=== PATIENT | male | born 1955 | race Caucasian/White ===

== ENCOUNTER 2023-01-29 08:52 | Outpatient (REF) | payer OTHER, SELFPAY ==
--- NOTE | ~2023-01-29 | MR_ITS ---
EXAMINATION: MR BRAIN WITHOUT CONTRAST CLINICAL INFORMATION: Tremor COMPARISON: Sinus CT 12/11/2022 TECHNIQUE: MRI of the brain was obtained using routine sequences without contrast. FINDINGS: No acute infarct. No acute intracranial hemorrhage or extra-axial fluid collection. Mild age-appropriate generalized parenchymal volume loss. Patchy T2 hyperintense foci in the subcortical and periventricular white matter and dimas are nonspecific but presumably reflects mild chronic microangiopathy. Prominent perivascular space within the right subinsular region. No mass lesion, mass effect, or herniation pattern. Normal intracranial arterial and dural venous sinus flow voids. Normal appearance of the midline structures. The orbits are grossly unremarkable. 3 scattered paranasal sinus mucosal thickening. Proteinaceous retention cyst in the dependent right maxillary sinus. No mastoid effusion. Normal marrow signal. Hypertrophic degenerative changes across the anterior atlantodental interval. MR/MR head/brain wo con IMPRESSION: No acute intracranial abnormality. Mild age-appropriate generalized parenchymal volume loss and presumed mild chronic microangiopathy.
== END 2023-01-29 08:53 | disposition home or self-care (01) ==
LOC: HO.MRI 08:52
PROVIDERS: PCP Student in an Organized Health Care Education/Training Program; Visit Provider Psychiatry & Neurology Neurology
DX: R25.1 Tremor, unspecified (principal)
CPT/HCPCS: 70551

== ENCOUNTER 2025-03-01 11:04 | Outpatient (AMB) | payer OTHER, SELFPAY ==
--- OUTSIDE RECORDS SUMMARY | 2025-02-25 09:00 | XMS_ITS | Encounter Summary ---
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 Name Role Phone Td Cohen MD Primary Care Provider [phone] Reason for Referral * Imaging (Routine) - Pending Review Specialty Diagnoses / Procedures Referred By Contac t Referred To Contact Radiology Diagnoses Routine general medical examination at a health care facility Procedures US Abdomen Aortic Aneurysm Screening Td Cohen MD [address] [place] [address] Phone: tel: fax: [address] Phone: tel: Referral ID Status Reason Start Date Expiration Date V isits Requested Visits Authorized [id number] Pending Review 02/19/2025 02/19/2026 1 1 Reason for Visit * Imaging (Routine) - Pending Review Specialty Diagnoses / Procedures Referred By Contac t Referred To Contact Radiology Diagnoses Routine general medical examination at a health care facility Procedures US Abdomen Aortic Aneurysm Screening Td Cohen MD [address] [place] [address] Phone: tel: fax: [address] Phone: tel: Referral ID Status Reason Start Date Expiration Date V isits Requested Visits Authorized [id number] Pending Review 02/19/2025 02/19/2026 1 1 Encounter Details Date Type Department Care Team (Latest Contact Info) Description 02/25/2025 9:00 AM EDT - 02/25/2025 11:59 PM EDT Hospital Encounter Radiology Department - [address] [phone] Routine general medical examination at a health care facility Discharge Disposition: Home or Self Care Social History Tobacco Use Types Packs/Day Years Used Date Smoking Tobacco: Former Cigarettes 1 - 08/05/1994 Smokeless Tobacco: Never Alcohol Use Standard Drinks/Week Comments No 0 (1 standard drink = 0.6 oz pur e alcohol) Housing Instability Answer Date Recorde d Are you worried that in the next 2 months you may not have stable housing? No 02/12/2025 Food Access & Nutrition Answer Date Rec orded Do you have access to a vari ety of food including fruits and vegetables? Yes 02/12/2025 Access to Healthcare Answer Date Record ed Within the last 3 months, ho w many times did you visit the emergency department for your medical care? 0 02/12/2025 Health Literacy Answer Date Recorded How often do you need to hav e someone help you when you read instructions, pamphlets, or other written material from your doctor or pharmacy? Never 02/12/2025 Caregiver: How often do you need to have someone help you when you read instructions, pamphlets, or other written material from your doctor or pharmacy? Not on file 02/12/2025 Financial Risk Answer Date Recorded How hard is it for you to pa y for the very basics like food, housing, medical care, and air conditioning / heating? Not very hard 02/12/2025 Transportation Answer Date Recorded Has the lack of transportati on kept you from meetings, work, or from getting things needed for daily living? No Has the lack of transportati on kept you from medical appointments or from getting medications? No 02/12/2025 Social Isolation Answer Date Recorded How often do you feel lonely or isolated from those around you? Sometimes 02/12/2025 Food Risk Answer Date Recorded Within the past 12 months we worried whether our food would run out before we got money to buy more. Never true 02/12/2025 Within the past 12 months th e food we bought just didn't last and we didn't have money to get more. Never true 02/12/2025 Dependent Care Answer Date Recorded Do you need help finding or paying for care for your loved ones. For example, early childhood aide classroom or elderly care for an older adult? No 02/12/2025 Education Answer Date Recorded Do you think completing more education or training, like finishing a GED, going to college, or learning a trade, would be helpful for you? No 02/12/2025 Employment and Income Answer Date Recor ded During the last four weeks, have you been actively looking for work? No 02/12/2025 Living Situation Answer Date Recorded What is your living situation? 0 02/12/2025 Sex and Gender Information Value Date Recorded Sex Assigned at Male 06/16/2024 1:04 PM EST Legal Sex Male 12:16 PM EST Gender Identity Male 06/16/2024 1:04 PM EST Sexual Orientation Straight 06/16/2024 1: 04 PM EST documented as of this encounter Medications at Time of Discharge aspirin 81 mg chewable tablet Chew 1 tablet (81 mg total). atorvastatin (LIPITOR) 10 mg tabletIndications: Type 2 diabetes mellitus without complications (CMS/[facility] V24, CMS/[facility] V28) Take 1 tablet by mouth once daily 90 tablet 1 11/03/2024 blood-glucose meter misc 1 each by Not Applicable route. 05/27/2012 buPROPion XL (WELLBUTRIN XL) 300 mg 24 hr tabletIndications: Major depressive disorder, recurrent, moderate (CMS/HCC V24, CMS/HCC V28) Take 1 tablet (300 mg total) by mouth 1 (one) time each day in the morning. 90 tablet 01/20/2025 cholecalciferol (VITAMIN D-3) 25 mcg (1,000 unit) tablet Take 1 tablet (1,000 Units total) by mouth 1 (one) time each day. citalopram (CeleXA) 20 mg tabletIndications: Major depressive disorder, recurrent, moderate (CMS/HCC V24, CMS/[facility] V28) Take 1 tablet (20 mg total) by mouth 1 (one) time each day. 90 each 02/02/2025 05/03/20 25 fluticasone propionate (FLONASE) 50 mcg/actuation nasal spray Administer 2 sprays into affected nostril(s). 11/19/2022 glipiZIDE (GLUCOTROL) 5 mg tablet Take 1 tablet (5 mg total) by mouth 2 (two) times a day before meals. 180 each 1 12/01/2024 05/30/20 25 glucose blood test strip USE ONE STRIP TO CHECK GLUCOSE TWICE DAILY 05/20/2024 lisinopriL (PRINIVIL,ZESTRIL) 20 mg tablet Take 1 tablet by mouth once daily 90 tablet 12/02/2024 medical marijuana [employer] med metFORMIN XR (GLUCOPHAGE-XR) 500 mg 24 hr tablet Take 4 tablets (2,000 mg total) by mouth 1 (one) time each day with breakfast. Do not crush, chew, or split. 360 tablet 1 01/20/2025 mineral oil-hydrophilic petrolatum (AQUAPHOR) ointment Apply topically if needed for dry skin. 420 g 11/18/2024 11/19/19 26 miscellaneous medical supply misc CPAP Nightly morphine (MS CONTIN) 30 mg 12 hr tablet Take 1 tablet (30 mg total) by mouth 1 (one) time each day if needed for severe pain. Do not crush, chew, or split. Take along with Morphine 60mg for a total of 90 mg daily Max Daily Amount: 30 mg 28 tablet 02/03/2025 morphine (MS CONTIN) 60 mg 12 hr tablet Take 1 tablet (60 mg total) by mouth 1 (one) time each day if needed for severe pain. Max Daily Amount: 60 mg 28 tablet 02/10/2025 primidone (MYSOLINE) 50 mg tablet Take 1 tablet (50 mg total) by mouth 1 (one) time each day. 08/11/2024 syringe with needle (BD Luer-Lisbet Syringe) 3 mL 21 gauge x 1 1/2 syringeIndications :Low testosterone To inject Testosterone IM every 2 weeks 6 each 3 11/20/2024 tamsulosin (FLOMAX) 0.4 mg 24 hr capsule Take 1 capsule (0.4 mg total) by mouth 1 (one) time each day. Capsules should be taken 30 minutes following the same meal each day. 90 capsule 1 02/11/2025 testosterone cypionate (DEPO-TESTOTERONE) 200 mg/mL injectionIndicatio ns:Low testosterone INJECT 0.5 ML INTO THE SHOULDER, THIGH, OR BUTTOCKS EVERY 14 DAYS. MAX DAILY AMOUNT: 100 MG 2 mL 2 02/26/2025 testosterone cypionate (DEPO-TESTOTERONE) 200 mg/mL injectionIndicatio ns:Low testosterone Inject 0.5 mL (100 mg total) into the shoulder, thigh, or buttocks every 14 (fourteen) days. Max Daily Amount: 100 mg 1 mL 2 11/20/2024 02/27/20 documented as of this encounter Discharge Disposition Disposition Code Departure Means Destination Home or Self Care documented in this encounter Plan of Treatment Upcoming Encounters Date Type Department Care Team (Late st Contact Info) Description 03/15/2025 11:15 AM EDT Office Visit [address] [phone] Irene Telles MD [address] [place] [id number] 06/16/2025 1:45 PM EST Office Visit Adult [address] [phone] Td Cohen MD [address] [place] [address] 02/23/2026 2:00 PM EDT Office Visit Adult Medicine [address] [phone] Td Cohen MD [address] [place], [place] documented as of this encounter Procedures Procedure Name Priority Date/Time Associated Diagnosis Comments US ABDOMEN AORTIC ANEURYSM SCREENING Routine 02/25/2025 9:19 AM EDT Routine general medical examination at a health care facility documented in this encounter Results * US Abdomen Aortic Aneurysm Screening (02/25/2025 9:19 AM EDT) Anatomical Region Laterality Modality Abdominal aorta Ultrasound 02/25/2025 11:1 8 AM EDT Narrative 02/25/2025 11:19 AM EDT Ultrasound of the abdominal aorta. History screening for AAA. No prior studies are available for comparison. Examination is limited due to body habitus and bowel gas artifact. There is no evidence of AAA. Proximal aorta measures 2 cm AP, mid aorta measures 2.1 cm AP, distal aorta measures 1.6 cm AP. Left common iliac artery measures 1.2 cm. Right common iliac artery was not visualized. CONCLUSIONS: Limited by body habitus and bowel gas artifact examination. No evidence of AAA. -------- FINAL REPORT -------- Dictated By: Izabel Roa Dictated Date: 02/25/2025 11:18 ET Assigned Physician: Izabel Roa Reviewed and Electronically Signed By: Izabel Roa Signed Date: 02/25/2025 11:19 ET Workstation ID: [id number] Transcribed By: Self Edit Transcribed Date: 02/25/2025 11:18 ET Procedure Note Izabel Roa MD - 02/25/2025 Ultrasound of the abdominal aorta. History screening for AAA. No prior studies are available for comparison. Examination is limited due to body habitus and bowel gas artifact. Thereis no evidence of AAA. Proximal aorta measures 2 cm AP, mid aorta measures 2.1 cm AP, distalaorta measures 1.6 cm AP. Left common iliac artery measures 1.2 cm. Rightcommon iliac artery was not visualized. CONCLUSIONS: Limited by body habitus and bowel gas artifact examination.No evidence of AAA. -------- FINAL REPORT -------- Dictated By: Izabel Roa Dictated Date: 02/25/2025 11:18 ET Assigned Physician: Izabel Roa Reviewed and Electronically Signed By: Izabel Roa Signed Date: 02/25/2025 11:19 ET Workstation ID: [id number] Transcribed By: Self Edit Transcribed Date: 02/25/2025 11:18 ET us Td Cohen MD IMG US PROCEDURES Final Res ult documented in this encounter Visit Diagnoses Diagnosis Routine general medical examination at a health care facility documented in this encounter Additional Health Concerns Assessment Noted Time PHQ-9 Depression Total Score: 11 025 12:36 PM EST documented as of this encounter Care Teams Cattle Examiner Relationship Specialty Start Date End Date Td Cohen MD [address] [place] [address] PCP - General 01/31/24 documented as of this encounter
--- NOTE | 2025-03-01 11:48 | MHC.OFFVIS ---
Intake Visit Reasons: 1 yr f/u Allergies No Known Allergies Allergy (Verified 02/24/25 08:21) HPI Comments Details: 70 yo RH man with depression, DM, HTN and tremor. He had a right temporal cystic lesion of unknown etiology, but a repeat MRI at [facility] did not suggest any significant pathology. He was doing ok. No new issues. [facility] Medical History (Updated 03/01/25 @ 11:51 by Delfina Marsh MD) Cerebral microvascular disease Brain lesion Peripheral neuropathy Diabetes mellitus Arthritis Obesity Hypertension Depression Review of Systems Const Details: Constitutional:?No fever, chills, fatigue, weight loss, or night sweats. HEENT:?No headache, vision changes, hearing loss, nasal congestion, sore throat. Neurological:?No dizziness, syncope, seizures, numbness, tingling, weakness, tremors, memory loss. Psychiatric:?No anxiety, depression, mood swings, sleep disturbance, or hallucinations. Endocrine:?No heat/cold intolerance, polydipsia, polyuria, or hair/skin changes. Hematologic/Lymphatic:?No easy bruising, bleeding, or lymphadenopathy. Integumentary (Skin):?No rash, lesions, itching, or color changes. ? Physical Exam Neuro Other: Mental Status: Alert and oriented to person, place, and time. Normal attention. Normal spontaneous speech, fluency, and comprehension. No obvious issues with mood and memory. Affect is appropriate. Cranial Nerves: CN II: Visual tsang full to confrontation, visual acuity intact. CN III, IV, : Pupils equal, round, reactive to light and accommodation. Extraocular movements are normal. CN V: Facial sensation is normal. CN VII: Facial movements symmetrical. CN VIII: Hearing intact to bedside conversation is normal. CN IX, X: Palate elevates symmetrically. CN XI: Shoulder shrug and head turn symmetrical. CN XII: Tongue midline without atrophy or fasciculations. Extrapyramidal: Full facial expressions and blinking. No rigidity. Movements are appropriate with no tremor or abnormality. Speech: Normal; no dysarthria or tremor. Assessment & Plan Assessment & Plan (1) Benign essential tremor: Comment: MRI brain WWO at [facility] in February 2024: R temp cystic lesion with mild associated gliosis, mild MVD MRI brain WO at [facility] in January 2023: brainstem MVD, mild MVD otherwise, right temporal cystic lesion. Code(s): G25.0 - Essential tremor Category: Medical Plan Impression: a: Benign tremor better with primidone Rec: Continue primidone 50mg a day Medications: Refilled primidone 50 mg PO BEDTIME 90 tabs 3RF Coding Level of Care Code Est Pt Level 3 (84332) Diagnoses Benign essential tremor G25.0
--- OUTSIDE RECORDS SUMMARY | 2025-03-01 12:23 | XMS_ITS | Clinical Summary ---
Author Organization [facility] Address [address] [place] [address] Care Team Providers Care Disk Recoater Name Role Phone Unavailable Primary Care Provider Unavailabl e Social History Tobacco Use Types Packs/Day Years Used Date Smoking Tobacco: Never Assessed Sex and Gender Information Value Date Recorded Sex Assigned at Not on file Gender Identity Not on file Sexual Orientation Not on file Job Start Date Occupation Industry Not on file Not on file Not on file Plan of Treatment Not on file
--- OUTSIDE RECORDS SUMMARY | 2025-03-01 12:23 | XMS_ITS | Data Portability ---
Author Organization [place] [facility] [place] Address [address] [place] [address] Care Team Providers Care [place] Name Role Phone DRAKE LANCASTER Primary Care Provider DRAKE LANCASTER Referring Provider [phone] Assessment Encounter Date Assessment Date Assessment LastModified by Organization Details LastModified Time 12/10/2024 12/10/2024 HPI : Thank you for the pleasure of requesting a consultation on this patient. Patient comes in complaining of right knee pain. He has a long history of issues with this right knee. He has had multiple surgeries on the right knee. The last 1 was in 2004. He had a tibial tubercle osteotomy. He was told many years ago he needed knee replacement. He has been living with his symptoms. The symptoms have worsened. He did have an injection 3 months ago. This brought only temporary relief. This patient is experiencing right knee pain for a period lasting greater than the last three months, which is severe (VAS score greater than or equal to 6 on a 0-10 scale) in intensity and the restriction of function (appropriate for a patient of this age) are intolerable. The pain substantially limits activities of daily living. In particular, walking tolerance and ability to stair climb is reduced. Conservative management such as non-steroidal anti-inflammatory medications available by prescription, physician directed therapy, ice and/or heat and activity modification have been minimally effective or deemed insufficient by the patient for a period lasting greater than 3-6 months in duration. Assistive devices and external support were not deemed by the patient to be helpful in improving their function. The patient is unable to tolerate further conservative measures, including physical therapy, due to the severity of arthritis and level of pain. Review of systems is negative for rapidly progressive neurological disorder, chest pain, shortness of breath, fevers, chills, or any signs of active or persistent local or systemic infection. Physical Exam : Patient is well nourished, well-developed, in no acute distress, with appropriate mood and affect. The patient is oriented to time, place, and person. Respirations are even and unlabored. Gait evaluation does reveal a limp. There is no inguinal adenopathy. Examination of the contralateral knee shows normal range of motion, strength, no tenderness, and intact skin. The affected limb is well-perfused, with well-healed anterior skin incision, shows a grossly normal motor and sensory examination. Right knee motion is significantly reduced and does cause significant pain. The knee moves from 5-125 degrees. The knee is stable within that [id number] to AP and ML stress. The alignment of the knee is varus. Muscle strength is normal. Pedal pulses are palpable. Hip examination, including flexion and internal rotation, was negative in that groin pain was not produced. Radiographs of the right knee from September 2024 demonstrate evidence of prior tibial tubercle osteotomy with 2 screws along the tibial tubercle. There are degenerative changes with joint space narrowing, osteophyte formation, and subchondral sclerosis. There is near [id number] articulation in the medial compartment. Assessment/Plan : The patient is an appropriate candidate for consideration of right total knee replacement. An extensive discussion was conducted of the natural history of the disease and the variety of surgical and non-surgical treatment options available to the patient. A risk/benefit analysis was discussed with the patient reviewing the advantages and disadvantages of surgical intervention at this time. A full explanation was given of the nature and the purpose of the procedure and anesthesia, its benefits, possible alternative methods of diagnosis of treatment, the risks involved, the possibility of complications, the foreseeable consequences of the procedure and the possible results of the non-treatment. No guarantee or assurance was made as to the results that may be obtained. Specifically, the risks were identified to include, but are not limited, to the following: Infection, phlebitis, pulmonary embolism, , paralysis, dislocation, pain, stiffness, instability, limp, weakness, breakage, leg-length inequality, uncontrolled bleeding, nerve injury, blood vessel injury, pressure sores, anesthetic risks, delayed healing of wound and bone, and wear and loosening. Additional risks of robotic knee replacement were discussed (if used) including but not limited to pin site infection, draining, longer incision, longer OR time, and fracture near the pin sites. Further discussion was undertaken with the patient about the details of surgical preparation, treatment and postoperative rehabilitation including medical clearance, autotransfusion, the hospital course and the postoperative rehabilitation involved. As a part of routine preoperative counseling, if the patient is a smoker, the patient recognizes the increased risk of complications in patients who utilize tobacco products. The patient has also been counseled regarding the elevated risk of surgical complications in patients with an elevated BMI. The patient demonstrates understanding of the increased risk in such patients. The patient was encouraged to participate in physical activity and diet modification under the direction of their primary care physician. We will plan on proceeding with right total knee arthroplasty using the Lamar total knee replacement system. However, it is possible during the preoperative planning process or due to intraoperative findings that a different implant system may be utilized in order to optimize the patient's outcome. We had a discussion regarding implant and bearing options. We had a detailed discussion of the advantages and limitations of the specific implant designs, materials and bearing surfaces. All questions were answered to the patient's satisfaction, and the patient was asked to call the office with any further concerns. All in all, I feel that this patient is a good candidate for surgical reconstruction. An in-depth discussion of the risks and benefits of surgery as noted above were had with patient, including any reasonable alternatives and the risks and benefits of the alternatives. The patient was given time to understand and ask questions, and the surgical consent was signed and dated today. The patient is also aware that questions can be asked at any time before the surgical date to me or my team. Plan for right total knee replacement facility and timing to be determined. If at [place] joint replacement [place] then robotic assisted. PCM Services Statement: Principal Care Management (PCM) services were recommended to this patient with a diagnosis of osteoarthritis who has failed conservative management and is indicated for, as well as undergone shared decision-making to undergo a total joint arthroplasty procedure. PCM services provided to the patient include but not limited to structured recording of patient health information within our electronic medical record system, 25/02 access and continuity of care to qualified practitioners and/or clinical staff, comprehensive care management and planning to optimize pre-surgical needs, choice of an appropriate surgical facility, preoperative patient education, and coordination of patient-specific luiza-operative needs. This will be actively managed by the clinical staff with physician supervision throughout enrollment in the program. The clinical staff will help manage care transitions as well as coordinate home and community-based care as it pertains to the patient's needs. The patient expresses understanding and awareness of PCM services, including but not limited to potential cost- sharing responsibilities; only one practitioner can furnish and bill for PCM services during a calendar month, and the patient can stop these services at any time. The patient understands and has verbally consented to accept PCM services and has been provided a copy of a written explanation of this service today. [email or web address] Not available 12/10/2024 11:46:19 Plan of Treatment Reminders Order Date Submit Date Provider Last Modified By Organization Details Last Modified Time Details Appointments None recorded. Lab None recorded. Referral None recorded. Procedures None recorded. Surgeries total knee arthroplast y (SURG) 2024 025 [email or web address] Not available 12:20:35 Imaging None recorded. Medication Orders None recorded. Patient TargetsNo targets recorded. Patient InstructionsNo instructions recorded. Reason for Referral None Reported. Results Created Date Observation Date Name Description Value Unit Range Abnormal Flag Note LastModifiedBy Organization Detail LastModifiedTime 12/10/1907/10/2023 MRI, knee, w/o contr ast No observ ation record ed. [email or web address] Not Available 2024 13:07:30 12/11/19 25 12/04/2024 MRI, knee, w/o contr ast No observ ation record ed. [email or web address] Not Available 2024 11:20:50 12/11/19 25 09/11/2024 XR, knee, 4 or more view No observ ation record ed. [email or web address] Not Available 2024 11:24:40 12/11/19 25 imagi ng/di agnos tic resul t No observ ation record ed. [email or web address] Not Available 12/10 15:28:55 Result Notes None recorded. 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 Procedures Surgical History Date Name Laterality Status Provider Name and Address Organization Details Recorded Time appendectomy completed Radha Grover [facility] [place] 12/10/2024 11:41:11 Imaging Results None recorded. Procedure Notes None recorded. Medical Equipment None Reported. Allergies No known drug allergies Medications Name Sig Start Date Stop Date Status Note LastModified by Organization Details LastModified Time primidone 50 mg tablet TAKE 1 TABLET BY MOUTH ONCE DAILY FOR 90 DAYS active Not Available Not Available No t Available citalopram 40 mg tablet TAKE 1 TABLET BY MOUTH ONCE DAILY IN THE MORNING active Not Available Not Available Not Available atorvastatin 10 mg tablet TAKE 1 TABLET BY MOUTH ONCE DAILY active Not Available Not Available No t Available lisinopril 20 mg tablet TAKE 1 TABLET BY MOUTH ONCE DAILY active Not Available Not Available No t Available morphine ER 30 mg tablet,exten ded release TAKE 1 TAB DAILY IF NEEDED FOR SEVERE PAIN DONT CRUSH,CHEW OR SPLIT TAKE W/ MORPHINE 60MG=90MG DAILY active Not Available Not Available No t Available tamsulosin 0.4 mg capsule TAKE 1 CAPSULE BY MOUTH ONCE DAILY 30 MINUTES AFTER SAME MEAL EVERY DAY active Not Available Not Available No t Available morphine ER 60 mg tablet,exten ded release TAKE 1 TABLET BY MOUTH ONCE DAILY IF NEEDED FOR SEVERE PAIN active Not Available Not Available Not Available lisinopril 10 mg tablet TAKE 1 TABLET BY MOUTH ONCE DAILY active Not Available Not Available No t Available testosterone cypionate 200 mg/mL intramuscula r oil INJECT 0.5 ML INTO THE SHOULDER, THIGH, OR BUTTOCKS EVERY 14 DAYS. MAX DAILY AMOUNT: 100 MG active Not Available Not Available No t Available BD Luer-Lisbet Syringe 3 mL 21 gauge x 1 1/2 USE TO INJECT TESTOSTERON E INTRAMUSCUL ROBERTO EVERY 2 WEEKS active Not Available Not Available No t Available metformin ER 500 mg tablet,exten ded release 24 hr TAKE 4 TABLETS BY MOUTH ONCE DAILY WITH BREAKFAST active Not Available Not Available No t Available glipizide 5 mg tablet TAKE 1 TABLET BY MOUTH TWICE DAILY BEFORE MEAL(S) active Not Available Not Available No t Available bupropion HCl XL 300 mg 24 hr tablet, extended release TAKE 1 TABLET BY MOUTH ONCE DAILY IN THE MORNING active Not Available Not Available Not Available Vitals Date Recorded Body height Body mass index (BMI) Body weight Provider Name and Address Organization Details Last Updated DateTime 12/10/2024 185.42 cm 36.9 kg/m2 128326.[address] [place] [facility], 12/10/2024 11:24:46 Social History None recorded. Functional Status Question Answer Note LastModified by Organizat ion Details LastModified Time Do you use any illicit or recreational drugs? No [email or web address] Information not available 12/10/2024 Do you or have you ever used any other forms of tobacco or nicotine? Yes [email or web address] Information not available 12/10/2024 What is your level of alcohol consumption? None [email or web address] Information not available 12/10/2024 Do you or have you ever used e-cigarettes or vape? Never used electronic cigarettes [email or web address] Information not available 12/10/2024 Mental Status None recorded. Family History Nothing Reported. 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
--- OUTSIDE RECORDS SUMMARY | 2025-03-01 12:23 | XMS_ITS ---
Author Name [facility] Organization Unknown History of Medication Use Medication Directions Dispensed Refills Start Date End Date Stat us atorvastatin 10 mg tablet TAKE 1 TABLET BY MOUTH ONCE DAILY active BD Luer-Lisbet Syringe 3 mL 21 gauge x 1 1/2 USE TO INJECT TESTOSTERONE INTRAMUSCULARLY EVERY 2 WEEKS active bupropion HCl XL 300 mg 24 hr tablet, extended release TAKE 1 TABLET BY MOUTH ONCE DAILY IN THE MORNING active citalopram 40 mg tablet TAKE 1 TABLET BY MOUTH ONCE DAILY IN THE MORNING active glipizide 5 mg tablet TAKE 1 TABLET BY MOUTH TWICE DAILY BEFORE MEAL(S) active lisinopril 10 mg tablet TAKE 1 TABLET BY MOUTH ONCE DAILY active lisinopril 20 mg tablet TAKE 1 TABLET BY MOUTH ONCE DAILY active metformin ER 500 mg tablet,extended release 24 hr TAKE 4 TABLETS BY MOUTH ONCE DAILY WITH BREAKFAST active morphine ER 30 mg tablet,extended release TAKE 1 TAB DAILY IF NEEDED FOR SEVERE PAIN DONT CRUSH,CHEW OR SPLIT TAKE W/ MORPHINE 60MG=90MG DAILY active morphine ER 60 mg tablet,extended release TAKE 1 TABLET BY MOUTH ONCE DAILY IF NEEDED FOR SEVERE PAIN active primidone 50 mg tablet TAKE 1 TABLET BY MOUTH ONCE DAILY FOR 90 DAYS active tamsulosin 0.4 mg capsule TAKE 1 CAPSULE BY MOUTH ONCE DAILY 30 MINUTES AFTER SAME MEAL EVERY DAY active testosterone cypionate 200 mg/mL intramuscular oil INJECT 0.5 ML INTO THE SHOULDER, THIGH, OR BUTTOCKS EVERY 14 DAYS. 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
== END 2025-03-01 11:55 | disposition home or self-care (01) ==
LOC: HO.HSM 11:05
PROVIDERS: PCP Internal Medicine; Visit Provider Psychiatry & Neurology Neurology
DX: G25.0 Essential tremor (principal)
CPT/HCPCS: 99213